=== PATIENT | male | born 1960 | race Two or more races ===

== ENCOUNTER 2019-05-14 10:07 | Emergency (ER) | payer OTHER ==
[~2019-05-14] VITALS: Ht 165.1 cm; Wt 81.8 kg
[2019-05-14] MEDS ORDERED: ketorolac trometh inj. 60 MG/2 ML VIAL IM ONE (10:55)
[2019-05-14] MEDS ORDERED: TRAM50TA2 PO (10:56)
[2019-05-14 11:24] VITALS: BP 163/90
== END 2019-05-14 11:20 | disposition home or self-care (01) ==
LOC: ER 10:08
DX: M25.562 Pain in left knee (principal); Z79.899 Other long term (current) drug therapy
CPT/HCPCS: 96372; 99284; J1885